=== PATIENT | female | born 1975 | race African-American/Black ===

== ENCOUNTER 2016-08-27 08:49 | Inpatient (IN) ==
[2016-08-27 09:39] LABS: BILIRUBIN URINE NEGATIVE (NEGATIVE); BLOOD URINE LARGE (NEGATIVE); COLOR YELLOW; GLUCOSE URINE NEGATIVE (NEGATIVE); LEUKOCYTES URINE NEGATIVE (NEGATIVE); NITRITE URINE NEGATIVE (NEGATIVE); PROTEIN URINE 30 mg/dL (NEGATIVE); SP GRAVITY URINE 1.019; TURBIDITY URINE HAZY (CLEAR); UR EPITHELIAL CELLS <10 /HPF (<10); URINE BACTERIA NEGATIVE /HPF; URINE CULTURE NEEDED? NO; URINE MICRO REVIEW NEEDED? NO; URINE RBC TNTC /HPF (<10); URINE SOURCE CLEAN CATCH; URINE WBC <10 /HPF (<10); UROBILINOGEN URINE NORMAL (NORMAL)
[2016-08-27 09:54] LABS: AGAP 16; ALBUMIN 4.5 g/dL (3.5-5.0); ALKALINE PHOSPHATASE 46 U/L (32-104); BUN 5 mg/dL (8-22); CALCIUM 9.1 mg/dL (8.8-10.2); CHLORIDE 98 mmol/L (98-107); COSMO 267; GOT 13 U/L (10-30); GPT 5 U/L (10-36); POTASSIUM 3.1 mmol/L (3.5-5.1); SODIUM 134 mmol/L (136-145); TCO2 20 mmol/L (25-35); TOTAL BILIRUBIN 0.48 mg/dL (0.20-1.00); TOTAL PROTEIN 7.5 g/dL (6.3-8.3)
[2016-08-27 10:12] LABS: BASO% 0.4 % (0.0-0.8); EOS# 0.03 X1000 (0.0-0.7); EOS% 0.6 % (0.0-10.0); HEMATOCRIT 9.6 % (37.0-47.0); LYMPH# 0.62 X1000 (1.2-3.4); LYMPH% 11.6 % (20.5-51.1); MANUAL DIFF NEEDED? YES; MCH 14.3 PG (27-31); MCV 57.1 FL (81-99); MONO# 0.33 X1000 (0.11-0.59); MONO% 6.2 % (1.7-9.3); NEUT% 81.2 % (42.2-75.2); RBC 1.68 XMIL (4.2-5.4)
[2016-08-27 10:13] LABS: PLT 14 X1000 (130-400)
[2016-08-27 10:17] LABS: HEMOGLOBIN 2.4 g/dL (12.0-16.0)
[2016-08-27 10:32] LABS: INR 0.94; PROTIME 9.8 Seconds (9.2-11.7); PTT 20.8 Seconds (22.0-36.0)
[2016-08-27 10:33] LABS: LYMPHS 6 % (21-51); MONO 2 % (1-9)
[2016-08-27 10:39] LABS: BANDS 2 % (0-1); HYPOCHROM 3+
[2016-08-27 16:02] LABS: RETIC% 0.6 % (0.8-2.1)
[2016-08-27 16:05] LABS: BASO% 0.8 % (0.0-0.8); EOS# 0.02 X1000 (0.0-0.7); EOS% 0.4 % (0.0-10.0); HEMATOCRIT 13.5 % (37.0-47.0); LYMPH# 1.34 X1000 (1.2-3.4); LYMPH% 26.2 % (20.5-51.1); MANUAL DIFF NEEDED? YES; MCH 17.5 PG (27-31); MCHC 27.4 g/dL (33-37); MONO# 0.19 X1000 (0.11-0.59); MONO% 3.7 % (1.7-9.3); NEUT% 68.9 % (42.2-75.2); RBC 2.11 XMIL (4.2-5.4)
[2016-08-27 16:09] LABS: PLT 17 X1000 (130-400)
[2016-08-27 16:10] LABS: HEMOGLOBIN 3.7 g/dL (12.0-16.0)
[2016-08-27 16:35] LABS: MAGNESIUM 2.1 mg/dL (1.5-2.7)
[2016-08-27 16:56] LABS: FREE T4 0.99 ng/dL (0.93-1.70)
[2016-08-28 08:21] LABS: AGAP 11; BUN 3 mg/dL (8-22); CALCIUM 8.5 mg/dL (8.8-10.2); CHLORIDE 103 mmol/L (98-107); COSMO 266; SODIUM 135 mmol/L (136-145); TCO2 21 mmol/L (25-35)
[2016-08-28 08:26] LABS: HEMATOCRIT 23.5 % (37.0-47.0); HEMOGLOBIN 7.5 g/dL (12.0-16.0); MCH 23.1 PG (27-31); MCHC 31.9 g/dL (33-37); MCV 72.5 FL (81-99); RBC 3.24 XMIL (4.2-5.4)
[2016-08-28 10:31] LABS: HIV ANTIBODY SCREEN SEE COMMENTS
[2016-08-28 10:36] LABS: HEPATITIS PROFILE ACUTE SEE COMMENTS
[2016-08-28 12:34] LABS: PLT 9 X1000 (130-400)
[2016-08-29 07:13] LABS: HEMATOCRIT 23.2 % (37.0-47.0); HEMOGLOBIN 7.3 g/dL (12.0-16.0); MCHC 31.5 g/dL (33-37); MCV 73.2 FL (81-99); RBC 3.17 XMIL (4.2-5.4)
[2016-08-29 07:20] LABS: PLT 16 X1000 (130-400)
[2016-08-29 07:39] LABS: AGAP 12; BUN 4 mg/dL (8-22); CALCIUM 8.5 mg/dL (8.8-10.2); CHLORIDE 103 mmol/L (98-107); COSMO 272; POTASSIUM 3.8 mmol/L (3.5-5.1); SODIUM 138 mmol/L (136-145); TCO2 23 mmol/L (25-35)
[2016-08-29 07:49] LABS: BANDS 2 % (0-1); LYMPHS 20 % (21-51); MONO 4 % (1-9)
[2016-08-29 07:50] LABS: HYPOCHROM 1+; LARGE PLATELETS OCCASIONAL; POLYCHROM 1+
[2016-08-29 10:03] LABS: FLOW CYTOMETERY SOURCE BONE MARROW; LEUKEMIA LYMPHOMA BY FLOW REFERRED FOR TESTING
[2016-08-30 07:14] LABS: AGAP 11; BASO% 0.3 % (0.0-0.8); BUN 4 mg/dL (8-22); CHLORIDE 104 mmol/L (98-107); COSMO 274; EOS# 0.04 X1000 (0.0-0.7); EOS% 0.5 % (0.0-10.0); HEMOGLOBIN 7.5 g/dL (12.0-16.0); IMM GRAN# 0.04 X1000 (0.0-0.04); IMM GRAN% 0.5 % (0.0-0.5); LYMPH# 1.37 X1000 (1.2-3.4); LYMPH% 15.6 % (20.5-51.1); MANUAL DIFF NEEDED? NO; MCH 23.4 PG (27-31); MCHC 31.3 g/dL (33-37); MCV 74.8 FL (81-99); MONO# 0.59 X1000 (0.11-0.59); MONO% 6.7 % (1.7-9.3); NEUT% 76.4 % (42.2-75.2); POTASSIUM 3.4 mmol/L (3.5-5.1); RBC 3.21 XMIL (4.2-5.4); SODIUM 139 mmol/L (136-145); TCO2 24 mmol/L (25-35)
[2016-08-30 07:15] LABS: PLT 14 X1000 (130-400)
[2016-08-31 07:39] LABS: HEMATOCRIT 24.6 % (37.0-47.0); HEMOGLOBIN 7.5 g/dL (12.0-16.0); MCH 24.2 PG (27-31); MCHC 30.5 g/dL (33-37); MCV 79.4 FL (81-99); PLT 28 X1000 (130-400)
[2016-08-31 07:49] LABS: AGAP 11; BUN 6 mg/dL (8-22); CHLORIDE 103 mmol/L (98-107); COSMO 274; POTASSIUM 3.5 mmol/L (3.5-5.1); SODIUM 139 mmol/L (136-145); TCO2 25 mmol/L (25-35)
[2016-09-01 06:57] LABS: BASO% 0.3 % (0.0-0.8); EOS# 0.04 X1000 (0.0-0.7); EOS% 0.4 % (0.0-10.0); HEMOGLOBIN 9.4 g/dL (12.0-16.0); IMM GRAN# 0.05 X1000 (0.0-0.04); IMM GRAN% 0.5 % (0.0-0.5); LYMPH# 1.79 X1000 (1.2-3.4); MANUAL DIFF NEEDED? YES; MCHC 31.3 g/dL (33-37); MCV 79.8 FL (81-99); MONO# 0.65 X1000 (0.11-0.59); MONO% 6.6 % (1.7-9.3); NEUT% 74.2 % (42.2-75.2); PLT 41 X1000 (130-400); RBC 3.76 XMIL (4.2-5.4)
[2016-09-01 07:33] LABS: LYMPHS 8 % (21-51); MONO 1 % (1-9)
[2016-09-01 11:06] LABS: IRON SATURATION 12 %; TIBC 456 ug/dL; TOTAL IRON 56 ug/dL (49-151); UNBOUND IRON 400 ug/dL (112-346)
[2016-09-02 07:16] LABS: BASO% 0.2 % (0.0-0.8); EOS# 0.07 X1000 (0.0-0.7); EOS% 0.6 % (0.0-10.0); HEMATOCRIT 31.6 % (37.0-47.0); HEMOGLOBIN 9.9 g/dL (12.0-16.0); IMM GRAN# 0.04 X1000 (0.0-0.04); IMM GRAN% 0.4 % (0.0-0.5); LYMPH# 1.68 X1000 (1.2-3.4); LYMPH% 15.1 % (20.5-51.1); MANUAL DIFF NEEDED? YES; MCH 25.6 PG (27-31); MCHC 31.3 g/dL (33-37); MCV 81.7 FL (81-99); MONO# 0.69 X1000 (0.11-0.59); MONO% 6.2 % (1.7-9.3); NEUT% 77.5 % (42.2-75.2); PLT 46 X1000 (130-400); RBC 3.87 XMIL (4.2-5.4)
[2016-09-02 07:44] VITALS: BP 152/74
[2016-09-02 08:37] LABS: LYMPHS 24 % (21-51); MONO 6 % (1-9)
[2016-09-02 08:38] LABS: HYPOCHROM 1+
== END 2016-09-02 13:25 | disposition home or self-care (01) ==
LOC: ED 08:49 → 3N 13:31
PROVIDERS: ATTEND Internal Medicine

== ENCOUNTER 2018-12-18 05:15 | Inpatient (IN) ==
--- NOTE | 2018-12-14 14:55 | EKG Report ---
Test Performed on : 12/14/2018 2:36:30 PM Test Reason : pat Blood Pressure : / mmHG Vent. Rate : 066 BPM Atrial Rate : 066 BPM P-R Int : 132 ms QRS Dur : 088 ms QT Int : 400 ms P-R-T Axes : 056 056 040 degrees QTc Int : 419 ms Normal sinus rhythm. Minimal voltage criteria for LVH, may be normal variant Borderline ECG When compared with ECG of 27-JUN-2011 10:48, No significant change was found Confirmed by Cyrus BENITEZ, Swapnil Walker ([id number]) on 12/15/2018 1:15:54 PM
[2018-12-14 15:14] LABS: HEMATOCRIT 32.1 % (37.0-47.0); HEMOGLOBIN 10.7 g/dL (12.0-16.0); MCH 31.6 PG (27-31); MCHC 33.3 g/dL (33-37); MCV 94.7 FL (81-99); MPV 12.5 FL (7.4-10.4); RBC 3.39 XMIL (4.2-5.4); RDW 14.9 % (11.5-14.5); WBC 7.48 X1000 (4.8-10.8)
[2018-12-14 15:30] LABS: AGAP 9; BUN 8 mg/dL (8-22); CALCIUM 8.9 mg/dL (8.8-10.2); CHLORIDE 104 mmol/L (98-107); COSMO 274; CREATININE 0.6 mg/dL (0.5-0.9); ESTIMATED GFR > 60; GLUCOSE 107 mg/dL (70-104); POTASSIUM 4.1 mmol/L (3.5-5.1); SODIUM 138 mmol/L (136-145); TCO2 25 mmol/L (25-35)
[2018-12-18] MEDS ORDERED: LR 1,000 ML ONE (05:40)
[2018-12-18] MEDS ORDERED: KEFZOL 1 GM/D5W 2 GM/100 ML IVPB ONE (05:40)
[2018-12-18] MEDS ORDERED: DIPRIVAN 1% ONE (06:14)
[2018-12-18] MEDS ORDERED: FENTANYL ONE (06:15)
[2018-12-18] MEDS ORDERED: VERSED ONE (06:52)
[2018-12-18] MEDS ORDERED: NORCURON ONE (07:10)
[2018-12-18] MEDS ORDERED: XYLOCAINE-MPF 2% ONE (07:10)
[2018-12-18] MEDS ORDERED: QUELICIN (DOSE) ONE (07:10)
[2018-12-18] MEDS ORDERED: SODIUM CHLORIDE 0.9% 10 ML ONE (07:10)
[2018-12-18] MEDS ORDERED: ZOFRAN ONE (07:10)
[2018-12-18] MEDS ORDERED: DECADRON ONE (07:10)
[2018-12-18] MEDS ORDERED: ROBINUL ONE (07:11)
[2018-12-18] MEDS ORDERED: XYLOCAINE 2% JELLY ONE (07:20)
[2018-12-18] MEDS ORDERED: EPHEDRINE ONE (07:38)
[2018-12-18] MEDS ORDERED: OFIRMEV 1000 MG/ISOTONIC SOLN 1,000 MG/100 ML BOTTLE ONE (08:29)
[2018-12-18] MEDS ORDERED: NEOSTIGMINE ONE ×2 (08:30)
[2018-12-18] MEDS: DILAUDID ONE ×4 (09:09→09:59)
[2018-12-18] MEDS ORDERED: NS 1,000 ML ONE (09:56)
[2018-12-18] MEDS ORDERED: DILAUDID IV PRN (10:53)
[2018-12-18] MEDS: NS 1,000 ML IV SCH ×2 (11:06→23:16)
[2018-12-18 11:21] LABS: URINE SOURCE CATH
[2018-12-18] MEDS: ZOFRAN IV PRN ×2 (11:24→15:11)
[2018-12-18 11:28] LABS: BILIRUBIN URINE NEGATIVE (NEGATIVE); BLOOD URINE NEGATIVE (NEGATIVE); COLOR YELLOW; GLUCOSE URINE NEGATIVE (NEGATIVE); KETONE URINE NEGATIVE (NEGATIVE); LEUKOCYTES URINE NEGATIVE (NEGATIVE); NITRITE URINE NEGATIVE (NEGATIVE); PH URINE 8.5; PROTEIN URINE NEGATIVE (NEGATIVE); SP GRAVITY URINE 1.016; TURBIDITY URINE HAZY (CLEAR); UR EPITHELIAL CELLS <10 /HPF (<10); URINE BACTERIA NEGATIVE /HPF; URINE RBC <10 /HPF (<10); URINE WBC <10 /HPF (<10); UROBILINOGEN URINE NORMAL (NORMAL)
[2018-12-18] MEDS: NORVASC PO SCH ×3 (12:47→21:36)
[2018-12-18] MEDS: COLACE PO SCH ×3 (12:48→21:36)
--- NOTE | 2018-12-18 14:16 | OPERATIVE NOTE ---
PROCEDURE DATE : 12/18/2018 PREOPERATIVE DIAGNOSIS: Immune thrombocytopenic purpura. POSTOPERATIVE DIAGNOSIS: Immune thrombocytopenic purpura. OPERATION: Open splenectomy. SURGEON: Junior Agarwal MD ANESTHESIA: General. ESTIMATED BLOOD LOSS: 25 mL. COMPLICATIONS: None apparent. SPECIMENS: Spleen. FINDINGS: The spleen was normal in size. There were no apparent accessory spleens. TECHNIQUE: The patient was brought to the operating room and placed supine on the table. General anesthesia was induced. She was prepped and draped in usual sterile fashion. A left subcostal incision was made with the knife 2 fingerbreadths below the costal margin and carried down through the subcutaneous tissue with cautery. The anterior fascia was opened with cautery. The posterior fascia was grasped between hemostats and opened with scissors. I then lengthened the posterior peritoneum and fascia with cautery. The patient was placed in reverse Trendelenburg and slight left rotation. I mobilized the left lobe of the liver off of the diaphragm using cautery. I then used a Bookwalter retractor to hold the liver out of the way and to further expose our operative field. The stomach was grasped with a [place] and displaced medially. The gastrosplenic ligament was then identified and entered with cautery. I then took down the short gastric vessels with the LigaSure device. I then was able to find the splenic artery at the superior border of the pancreas. I carefully dissected around it with a right angle clamp and ligated it with 2-0 silk. I then turned my attention to the peritoneal and ligamentous attachments of the spleen. Beginning superiorly I incised the splenophrenic ligament with cautery as well as the splenorenal ligament in the same fashion. Then, using some blunt dissection I was able to mobilize the spleen and bring it up out of the incision. The tail of the pancreas was identified and carefully protected throughout the case. The splenocolic ligaments were incised and divided with the LigaSure and we were left with our splenic hilum vessels. The artery and vein were . I doubly ligated each with 2-0 silk free ties proximally and then a 2-0 silk stick tie distal to that. It was divided distal to these ligatures and the spleen was removed from the field. I did check for accessory spleens in the gastrosplenic ligament, the gastrocolic ligament, the greater omentum, the splenic hilum, and the renal bed and I did not see any accessory spleens. There were no signs of any bleeding. I gently irrigated with saline and suctioned this out. I then removed the Bookwalter retractor. All laparotomy pads were accounted for. I closed the posterior fascia with a running #1 Vicryl. The anterior fascia was closed with a running #1 Maxon. The skin was closed with skin clips. She was awakened and transferred to the recovery room in stable condition without apparent complication. cc: Junior Agarwal MD
[2018-12-18] MEDS: NORCO-10 PO PRN ×2 (15:11→19:50)
--- NOTE | 2018-12-18 16:54 | GENERAL SURGERY PROGRESS NOTE ---
DATE: 12/18/2018 SUBJECTIVE: The patient is doing fine postoperatively. She reports to feeling some soreness but no severe pain. No nausea or vomiting. She is tolerating clear liquid diet so far. OBJECTIVE: Vitals: She is afebrile, pulse 85. Respirations are unlabored, blood pressure 124/58, O2 saturation 99%. General: She is awake, alert, no acute distress. Respiratory: Bilateral breath sounds. No work of breathing. GI: Soft, appropriately tender. Incisional dressings clean and dry. ASSESSMENT/PLAN: A 43-year-old female postoperative day 0 of open splenectomy for ITP. We will observe her for the next couple of days at least, advance her diet as tolerated. We will begin mobilizing her this evening and discontinue her Corado catheter. Dr. Paulson will be present and rounding on her over the weekend. cc: Junior Agarwal MD
[2018-12-18] MEDS: PERIDEX MT SCH ×2 (19:50→21:36)
[2018-12-18] MEDS: XANAX PO SCH (21:36)
[2018-12-19] MEDS: NORCO-10 PO PRN ×5 (02:37→23:20)
[2018-12-19 07:52] LABS: BASO# 0.01 X1000 (0.0-0.2); BASO% 0.1 % (0.0-0.8); EOS# 0.03 X1000 (0.0-0.7); EOS% 0.2 % (0.0-10.0); HEMATOCRIT 29.8 % (37.0-47.0); HEMOGLOBIN 9.6 g/dL (12.0-16.0); IMM GRAN# 0.03 X1000 (0.0-0.04); IMM GRAN% 0.2 % (0.0-0.5); LYMPH# 1.26 X1000 (1.2-3.4); LYMPH% 7.7 % (20.5-51.1); MCH 30.2 PG (27-31); MCHC 32.2 g/dL (33-37); MCV 93.7 FL (81-99); MONO# 1.23 X1000 (0.11-0.59); MONO% 7.6 % (1.7-9.3); MPV 11.7 FL (7.4-10.4); NEUT# 13.71 X1000 (1.4-6.5); NEUT% 84.2 % (42.2-75.2); PLT 554 X1000 (130-400); RBC 3.18 XMIL (4.2-5.4); RDW 14.9 % (11.5-14.5); WBC 16.27 X1000 (4.8-10.8)
[2018-12-19] MEDS: PERIDEX MT SCH ×2 (09:14→22:01)
[2018-12-19] MEDS: NORVASC PO SCH ×2 (09:14→22:01)
[2018-12-19] MEDS: COLACE PO SCH ×2 (09:15→22:01)
[2018-12-19] MEDS: LOVENOX SUBQ SCH (12:47)
--- NOTE | 2018-12-19 14:37 | GENERAL SURGERY PROGRESS NOTE ---
DATE: 12/19/2018 SUBJECTIVE: Doing okay. Had some nausea during the day yesterday, but this has resolved overnight. No fevers. Pulse 78, blood pressure 118/64. Abdomen is soft, appropriately tender. Dressing is clean. White count 16, hematocrit 29, platelets are 554 now. ASSESSMENT/PLANS: A 43-year-old female status post splenectomy for refractory thrombocytopenia. She is doing okay. She has a diet. We will start her on prophylactic Lovenox and encouraged her to be out of bed. Her Corado catheter is out. cc: MD Junior Mcguire MD
[2018-12-19] MEDS: ZOFRAN IV PRN ×2 (18:23→23:20)
[2018-12-19] MEDS: NS 1,000 ML IV SCH (18:27)
[2018-12-19] MEDS: XANAX PO SCH (22:01)
[2018-12-20] MEDS: NORCO-10 PO PRN ×4 (03:43→21:54)
[2018-12-20] MEDS: ZOFRAN IV PRN (03:43)
[2018-12-20] MEDS: NS 1,000 ML IV SCH (07:58)
[2018-12-20] MEDS: NORVASC PO SCH ×2 (11:10→21:54)
[2018-12-20] MEDS: COLACE PO SCH ×2 (11:10→21:54)
[2018-12-20] MEDS: PERIDEX MT SCH ×2 (11:10→21:54)
[2018-12-20] MEDS: LOVENOX SUBQ SCH (11:11)
--- NOTE | 2018-12-20 16:37 | GENERAL SURGERY PROGRESS NOTE ---
DATE: 12/20/2018 SUBJECTIVE: She is doing well. She has had some bowel function. Still some nausea and an episode of emesis overnight. No fevers. No tachycardia. I reviewed her labs, nothing new today. ASSESSMENT AND PLAN: A 43-year-old female status post splenectomy. She is doing well. I have encouraged her to be out of bed, limit p.o. as long as she is feeling bloated and nauseated but otherwise, she is doing well. cc: MD Junior Mcguire MD
[2018-12-20] MEDS: XANAX PO SCH (21:54)
[2018-12-21] MEDS: NS 1,000 ML IV SCH (00:44)
[2018-12-21] MEDS: NORCO-10 PO PRN ×2 (00:45→05:44)
[2018-12-21 07:34] VITALS: BP 121/70
[2018-12-21] MEDS: COLACE PO SCH (08:58)
[2018-12-21] MEDS: LOVENOX SUBQ SCH (08:58)
[2018-12-21] MEDS: NORVASC PO SCH (08:58)
[2018-12-21] MEDS: PERIDEX MT SCH (08:58)
--- NOTE | 2018-12-22 08:42 | DISCHARGE SUMMARY ---
ADMISSION DATE: 12/18/2018 DISCHARGE DATE: 12/21/2018 ADMITTING PHYSICIAN: Junior Agarwal MD ADMITTING DIAGNOSES: 1. Idiopathic thrombocytopenic purpura. 2. History of abnormal uterine bleeding. 3. Chronic anemia. POSTOPERATIVE DIAGNOSES: 1. Idiopathic thrombocytopenic purpura. 2. History of abnormal uterine bleeding. 3. Chronic anemia. PROCEDURE: Open splenectomy. SURGEON: Junior Agarwal MD HOSPITAL COURSE: This patient was admitted for elective splenectomy after receiving her vaccinations. She underwent the above procedure on 12/18/2018. Please see the dictated operative report for full details. She did well after surgery. She had some nausea and 1 episode of emesis over the weekend, but that cleared up on the day prior to discharge she was able to ambulate, keep regular food down. The day prior to discharge, she was voiding, she was passing gas. She was hemodynamically stable. Her wound was healing well and her pain was well controlled. She was seen by Dr. Agarwal on 12/21/2018 and appeared ready and stable for discharge. INSTRUCTIONS: No lifting over 15 pounds. She may shower and keep a dry bandage over the wound for the first week. She may eat a regular diet. She will follow up with Dr. Agarwal in 1 week. DISCHARGE MEDICATIONS: She will resume her konrad Norvasc 2.5 mg p.o. b.i.d., Xanax 0.25 mg p.o. at bedtime, and she has a new prescription for [place] 10 mg 1 p.o. q.6 hours p.r.n. pain and Colace 100 mg p.o. b.i.d. while on [place]. cc: MD Vj Cade MD Mishanta Reyes, DO
== END 2018-12-21 09:51 | disposition home or self-care (01) | DRG 801 ==
LOC: 4N 05:15 → OR 05:15 → OBSVTOIN 09:47
PROVIDERS: ADMIT Surgery; ATTEND Surgery